=== PATIENT | male | born 1975 | race Caucasian/White ===

== ENCOUNTER 2022-08-23 15:42 | Outpatient (CLI) | payer OTHER, SELFPAY ==
--- NOTE | 2022-08-23 16:00 | CRLHL7_ITS ---
For Patients: As a result of the Cures Act, medical imaging exams and procedure reports are released immediately into your electronic medical record. You may view this report before your referring provider. If you have questions, please contact your health care provider. INDICATION: One-week history of tenderness over the right epididymis. COMPARISON: None. TECHNIQUE: Morrow scale imaging was performed of the scrotum. In addition color Doppler and spectral Doppler analysis was performed of the testes. FINDINGS: The testes demonstrate normal arterial and venous blood flow on color Doppler and spectral Doppler analysis. The testes have uniform echogenicity with no evidence of a suspicious mass or area of inflammation. The right testis measures 4.7 x 2.6 x 2.9 cm in size and the left testis measures 4.8 x 2.6 x 3.4 cm. The epididymis appears normal bilaterally although please note there is a cyst either within or just adjacent to the right epididymal head measuring 1.1 x 0.5 x 0.9 cm. There is no evidence of a hydrocele or varicocele. There is no evidence for acute epididymitis. IMPRESSION: Right epididymal head cyst either within or just adjacent to the epididymal head measuring up to 1.1 cm. No evidence for epididymitis or orchitis. Dictated by Dany Andrews MD @ 08/24/2022 8:21:57 AM (Electronically Signed)
== END 2022-08-23 15:43 | disposition home or self-care (01) ==
LOC: US 15:43
PROVIDERS: PCP Family Medicine; Visit Provider Family Medicine
DX: N50.89 Other specified disorders of the male genital organs (principal); L72.0 Epidermal cyst
CPT/HCPCS: 76870; 93976

== ENCOUNTER 2022-08-24 11:45 | Outpatient (CLI) | payer OTHER, SELFPAY ==
[2022-08-24 14:14] LABS: Albumin* 4.7 g/dL (3.3-5.0); Chloride* 106 mmol/L (96-114)
[2022-08-24 14:15] LABS: Potassium* 4.5 mmol/L (3.6-5.1); Sodium* 139 mmol/L (135-149)
[2022-08-24 14:17] LABS: Alkaline Phosphatase* 53 U/L (40-150); Aspartate Amino Transferase* 29 U/L (12-35); Bilirubin Total* 1.1 mg/dL (0.1-1.5); Blood Urea Nitrogen* 26 mg/dL (5-24); Carbon Dioxide* 23 mmol/L (20-32); Cholesterol* 227 mg/dL (90-199); Estimated Glomerular Filt Rate 93 ml/min; Glucose* 101 mg/dL (60-115); Total Protein* 7.2 g/dL (6.0-8.3); Triglycerides* 75 mg/dL (40-149)
[2022-08-24 14:18] LABS: Alanine Aminotransferase* 46 U/L (4-50); Calcium* 9.3 mg/dL (8.4-10.6); HDL Cholesterol* 65 mg/dL (>=40); LDL Cholesterol Calculated 147 mg/dL (<100)
[2022-08-24 16:16] LABS: PSA Screen* 0.77 ng/mL (0.10-4.00)
== END 2022-08-24 11:46 | disposition home or self-care (01) ==
PROVIDERS: PCP Family Medicine; Visit Provider Family Medicine
DX: Z00.00 Encounter for general adult medical examination without abnormal findings (principal); E78.00 Pure hypercholesterolemia, unspecified; I10 Essential (primary) hypertension; Z12.5 Encounter for screening for malignant neoplasm of prostate
CPT/HCPCS: 80053; 80061; 84153

== ENCOUNTER 2023-03-30 08:05 | Outpatient (CLI) | payer OTHER, SELFPAY | END 2023-03-30 08:06 | disposition home or self-care (01) | PROVIDERS: PCP Family Medicine; Visit Provider Family Medicine | DX: I10 Essential (primary) hypertension (principal); E78.00 Pure hypercholesterolemia, unspecified | CPT/HCPCS: 80053; 80061 ==

== ENCOUNTER 2023-05-01 13:04 | Outpatient (CLI) | payer OTHER, SELFPAY | END 2023-05-01 13:05 | disposition home or self-care (01) | LOC: LKVREF 13:05 | PROVIDERS: PCP Family Medicine; Visit Provider Family Medicine | DX: R53.83 Other fatigue (principal); I10 Essential (primary) hypertension; E78.00 Pure hypercholesterolemia, unspecified | CPT/HCPCS: 84443 ==

== ENCOUNTER 2023-05-25 07:32 | Outpatient (CLI) | payer OTHER, SELFPAY | END 2023-05-25 07:33 | disposition home or self-care (01) | LOC: RAD 07:33 | PROVIDERS: PCP Family Medicine; Visit Provider Family Medicine | DX: I51.7 Cardiomegaly (principal) | CPT/HCPCS: 93306 ==

== ENCOUNTER 2023-10-04 12:08 | Outpatient (CLI) | payer OTHER, SELFPAY ==
--- NOTE | 2023-10-04 13:17 | W.ANESCHARGE ---
Anesthesia Charges Start Date/Time Anesthesia Start Date: 10/04/23 Anesthesia Start Time: 12:55 Stop Date/Time Anesthesia Stop Date: 10/04/23 Anesthesia Stop Time: 13:24
--- NOTE | 2023-10-04 13:26 | W.ANESCHARGE ---
Anesthesia Charges Start Date/Time Anesthesia Start Date: 10/04/23 Anesthesia Start Time: 12:55 Stop Date/Time Anesthesia Stop Date: 10/04/23 Anesthesia Stop Time: 13:24
== END 2023-10-04 12:09 | disposition home or self-care (01) ==
LOC: OP CLINIC 12:09
PROVIDERS: PCP Family Medicine; Visit Provider Surgery
DX: K63.5 Polyp of colon (principal); K62.1 Rectal polyp; Z86.010 Personal history of colon polyps
CPT/HCPCS: 00811; 45385; 88305; J2704

== ENCOUNTER 2024-04-08 08:42 | Outpatient (CLI) | payer OTHER, SELFPAY | END 2024-04-08 08:43 | disposition home or self-care (01) | LOC: NFLDREF 04-11 07:07 | PROVIDERS: PCP Family Medicine; Referring Provider Family Medicine; Visit Provider Family Medicine | DX: E78.00 Pure hypercholesterolemia, unspecified (principal); Z13.1 Encounter for screening for diabetes mellitus; Z12.5 Encounter for screening for malignant neoplasm of prostate; Z13.6 Encounter for screening for cardiovascular disorders | CPT/HCPCS: 80053; 80061; G0103 ==

== ENCOUNTER 2025-07-27 14:57 | Outpatient (CLI) | payer OTHER, SELFPAY | END 2025-07-27 14:58 | disposition home or self-care (01) | LOC: LKVREF 14:57 | PROVIDERS: PCP Family Medicine; Visit Provider Family Medicine | DX: R73.9 Hyperglycemia, unspecified (principal) | CPT/HCPCS: 80053; 80061; G0103 ==